=== PATIENT | female | born 1995 | race Caucasian/White ===

== ENCOUNTER 2020-06-26 10:31 | Outpatient (CLI) | payer OTHER ==
--- NOTE | 2020-06-26 11:09 | SLEEP CARE CONSULTATION ---
Information from patient questionnaire entered by Libia Sandhu. I have reviewed and concur with the information entered by Libia Sandhu. This document represents the service I personally performed and the decisions made by me, Bill San MD, [facility]. History of Present Illness Service Date and Time: 06/26/2020 1031 Reason for Visit: New patient Chief Complaint: reports: Unrefreshed sleep, Excessive daytime sleepiness, Fatigue, Other (headaches) Date of Onset: 4 years Usual bedtime: 1 am Time it takes to fall asleep: 10-20 minutes Snores at night: Yes (mild) Observed to quit breathing while asleep: No Sleeps alone due to snoring: No Number of times waking at night: 3-4 Reasons for waking at night: reports: Choking, Bathroom Toss, Turn, or Twitch while sleeping: Yes Recalls having dreams: Yes Usually gets out of bed at: 9:30-10 am Feels refreshed in the morning: No Morning headache: Yes Sleepy or fatigued during the day: Yes Ever fallen asleep while driving: No Takes day naps: Yes Dreams during day naps: Yes Prior sleep studies: No Additional HPI information: I had the pleasure of seeing Ms. Fulton today regarding the possibility of her having a sleep disorder. As you know, she is a 24 year old lady who complains of headache and fatigue for the past 4 years. Her headache lasts for a week at a time. The patient tells me that she normally goes to bed around 1 am, and it takes her approximately 10 - 20 minutes to fall asleep. Her work schedule is 2:30 pm to 11 pm. She has been told that she snores lightly at night. She has never been observed to stop breathing in her sleep. Her spouse sleeps in the same bed. She can recall waking up on the average of 3 - 4 times during the night. Most of the time she wakes up because of having to use the bathroom and choking. There is a lot of tossing and turning in her sleep. She wears a mouth guard for bruxism. No somniloquy (sleep talking) or somnambulism (sleep walking). Generally she can recall having dreams. In the morning she usually gets up out of the bed around 9:30 - 10 a.m. not feeling refreshed nor rested. She usually does have a morning headache. During the day she complains of fee ling sleepy and fatigued. Her score on [place] Sleepiness Scale is 10 out of 24. She has never fallen asleep while driving nor has had any accident due to sleepiness. She usually takes a nap during the day. She reports having impaired concentration during the day. - Parasomnia Symptoms Ever been unable to move upon waking from sleep: No Ever felt weak in the knees when startled or emotional: Yes Bothered by creepy, crawly, restless sensations in legs: No Problems with memory or concentration: Yes Subjective Initial [place] Sleepiness Scale score: 10 (in 2019) Social History The patient's occupation is a Active . Patient is and lives in [place]. Cigarettes per day (20/pack): 10 (1/4 - 1/2 pack a day) Years of smokin Quit date: 2018 Smoking Pack Years: 5.5 Alcohol use: Yes Caffeine use: Yes Caffeine amount and frequency: 2-3 cups per day Family History Family history of sleep disordered breathing: Yes (mother) Family Hx Sleep Apnea: Mother: Sleep apnea - Treated Allergies and Home Medications Drug allergies reviewed: Yes (NKDA) Home medication list reviewed: Yes (exedrin) Review of Systems Weight gain over past 5 years: 8 Weight loss over past 5 years: 50 Cardiovascular: denies: high blood pressure, palpitations, chest pain, irregular heart rate or pulse, leg or foot swelling, have to sleep sitting up, other Respiratory: denies: shortness of breath, wheeze, sputum production, chronic cough, other Gastrointestinal: denies: heartburn, difficulty swallowing, nausea, vomitting, diarrhea, abdominal pain, other Urinary: denies: incontinence, frequency, urgency, impotence, other Neurological: reports: headaches Psychiatric: denies: Attention Deficit Hyperactivity, anxiety, depression, mood disorder, claustrophobia, other Ear/Nose/Throat: reports: nasal congestion Endocrine: reports: sluggishness Musculoskeletal: reports: neck pain, back pain Immunologic: reports: other (dermatographia) Physical Exam Vital signs obtained and entered by: Detailed physical exam was not performed to comply with the COVI precaution Height: 5 ft 1.5 in Weight: 150 lb Body Mass Index: 27.8 BMI Classification: Overweight Impression and Plan IMPRESSION: 1. Obstructive Sleep Apnea-Hypopnea Syndrome, as suggested by history of snoring, frequent awakenings during the night, nocturnal choking, unrefreshed sleep, morning headache, cognitive impairment, and daytime hypersomnolence. Narrow oropharynx and obesity are common predisposing factors for obstructive sleep apnea-hypopnea syndrome. Pathophysiology of sleep-disordered breathing was discussed. I recommend proceeding to polysomnography to confirm the diagnosis and to assess severity. I informed the patient of what the sleep studies involve and after some discussion, she agreed to proceed. Plan: 1. Schedule an in-laboratory polysomnography. 2. Avoid long distance driving or when feeling sleepy. 3. Avoid alcohol, sedative and muscle relaxant around bedtime. 4. Return in 1 to 2 weeks after the study to discuss results. Time Spent with Patient (minutes): 15
== END 2020-06-26 10:32 | disposition home or self-care (01) ==
LOC: SC 10:31
PROVIDERS: ATTEND Internal Medicine Pulmonary Disease
DX: R06.83 Snoring (principal); R53.83 Other fatigue; G47.10 Hypersomnia, unspecified; G47.63 Sleep related bruxism; R51.9 Headache, unspecified; G47.8 Other sleep disorders; E66.3 Overweight; Z68.27 Body mass index [BMI] 27.0-27.9, adult; Z87.891 Personal history of nicotine dependence
CPT/HCPCS: 99203; 99212

== ENCOUNTER 2020-07-22 19:30 | Outpatient (CLI) | payer OTHER | END 2020-07-22 19:31 | disposition home or self-care (01) | LOC: SC 19:30 | PROVIDERS: ATTEND Internal Medicine Pulmonary Disease | DX: R06.83 Snoring (principal); G47.10 Hypersomnia, unspecified; E66.3 Overweight; Z68.27 Body mass index [BMI] 27.0-27.9, adult | CPT/HCPCS: 95810 ==

== ENCOUNTER 2020-07-30 10:55 | Outpatient (CLI) | payer OTHER ==
--- NOTE | 2020-07-30 11:27 | SLEEP CARE CONSULTATION ---
Information from patient questionnaire entered by Libia Sandhu. I have reviewed and concur with the information entered by Libia Sandhu. This document represents the service I personally performed and the decisions made by me, Bill San MD, [facility]. History of Present Illness Service Date and Time: 07/30/2020 1055 Initial [place] Sleepiness Scale score: 10 (in 2019) Current [place] Sleepiness Scale score: 12 Additional HPI information: HPI: Ms. Fulton was called for follow up of the sleep study she had on 07/22/2020. The polysomnography showed that the patient had normal sleep efficiency. The sleep architecture was normal as well. Respiratory monitoring showed no significant sleep disordered breathing (AHI = 0.1) or hypoxia ( oxygen saturation of 94%). The patient slept adequately in supine position (supine AHI = 0.5; non-supine = 0.00). No audible snore. There was no significant periodic leg movement of sleep. Cardiac rhythm was normal sinus rhythm without significant arrhythmia. No abnormal behavior (parasomnia) observed during the night. The patient was informed of these findings. I explained to her that the sleep study was normal. We did not find obstructive sleep apnea-hypopnea that could cause her headache. Sleep Study - Results Type of Sleep Study: Polysomnography Prior sleep studies: No Allergies and Home Medications Drug allergies reviewed: Yes Home medication list reviewed: Yes Review of Systems Review of systems same as previous: Yes Physical Exam Vital signs obtained and entered by: To minimize the risk of COVID-19 exposure, detailed exam was not performed. Height: 5 ft 1.5 in Weight: 150 lb Body Mass Index: 27.8 BMI Classification: Overweight Impression and Plan IMPRESSION: 1. Headache, not explained by a sleep disorder. No further evaluation or treatment is indicated from sleep medicine standpoint. PLAN: 1. Continue to follow up with her neurologist. 2. Return to the sleep clinic on as needed basis. Visit Type: In Office Time Spent with Patient (minutes): 8 Provider Statement: I spent 100% of the Face to Face Visit with the patient with greater than 50% spent counseling the patient and coordination of care.
== END 2020-07-30 10:56 | disposition home or self-care (01) ==
LOC: SC 10:55
PROVIDERS: ATTEND Internal Medicine Pulmonary Disease
DX: R51.9 Headache, unspecified (principal); E66.3 Overweight; Z68.27 Body mass index [BMI] 27.0-27.9, adult; G47.8 Other sleep disorders; G47.10 Hypersomnia, unspecified
CPT/HCPCS: 99212